=== PATIENT | female | born 1985 | race African-American/Black ===

== ENCOUNTER 2017-05-07 18:04 | Emergency (ER) | payer MEDICAID, OTHER ==
[~2017-05-07] VITALS: Ht 165.1 cm; Wt 76.2 kg
[~2017-05-07 18:04] MED LIST: CEPHALEXIN500 MG ORAL; DIFLUCAN100 MG ORAL; DIFLUCAN150 MG PO; FLAGYL500 MG ORAL; FLAGYL500 MG PO; METROGEL-VAGINA70 G1 VAGIN; METRONIDAZOLE500 MG ORAL; NKM; ZOFRAN8 MG ORAL
--- NOTE | 2017-05-07 18:50 | Emergency Room Report ---
History of Present Illness General Chief Complaint: Female Urogenital Problems Source: Patient Present Illness HPI Patient presents with 2 children Patient herself complains of some burning with urination She was told by her boyfriend that he had cheated on her and that she should probably be tested for STDs Denies any abdominal pain denies any fevers or chills denies any vomiting or diarrhea denies any abdominal pain Denies any pelvic pain Allergies: Coded Allergies: No Known Allergies (Unverified , 01/28/12) Patient History Past Medical History: see triage record Pertinent Family History: none Last Menstrual Period: 04/25/2017 Reviewed Nursing Documentation: PMH: Agreed, PSxH: Agreed Nursing Documentation-PMH Past Medical History: No Stated History Review of Systems All Other Systems: negative except mentioned in HPI Physical Exam Vital Signs Date Time Temp Pulse Resp B/P (MAP) Pulse Ox O2 Delivery O2 Flow Rate FiO2 05/07/17 18:44 97.7 84 16 107/72 96 Room Air 97.7 Sp02 EP Interpretation: reviewed, normal General Appearance: well appearing, no apparent distress Head: normocephalic, atraumatic Eyes: bilateral eye PERRL, bilateral eye EOMI ENT: hearing grossly normal, normal pharynx, TMs + canals normal, uvula midline Neck: full range of motion, supple, no meningismus, no bony tend Respiratory: lungs clear, normal breath sounds, no rhonchi, no respiratory distress, no retraction, no accessory muscle use Cardiovascular #1: normal peripheral pulses, regular rate, rhythm, no edema, no gallop, no JVD, no murmur Gastrointestinal: normal bowel sounds, non tender, soft, no mass, no organomegaly, non-distended, no guarding, no hernia, no pulsatile mass, no rebound Genitourinary: no CVA tenderness Musculoskeletal: normal inspection Neurologic: oriented x3, responsive, c2 tactical analysis technician III-XII nml as tested, motor strength/ tone normal, sensory intact Psychiatric: mood/affect normal Skin: normal color, no rash, warm/dry, palpation normal Lymphatic: normal inspection, no adenopathy Medical Decision Making Diagnostic Impression: Primary Impression: UTI Additional Impression: Urethritis ER Course With the patient's history and examination, multiple differentials considered, including but not limited to , ectopic , ovarian torsion, gastritis, cholecystitis, pancreatitis, appendicitis Patient's urine sample is negative for there is some evidence of bacteria Given the patient's complaints she was empirically treated for possible STD She understands that further testing has not been done here in the ER given the lack of appropriate follow-up however patient requires close outpatient STD clinic follow-up Labs Test 05/07/17 18:54 Urine Color Yellow Urine Appearance Cloudy Urine pH 6 (4.5-8.0) Urine Specific [place] 1.020 (1.005-1.035) Urine Protein 1+ (NEGATIVE) Urine Glucose (UA) Negative (NEGATIVE) Urine Ketones Negative (NEGATIVE) Urine Occult Blood 5+ (NEGATIVE) Urine Nitrite Negative (NEGATIVE) Urine Bilirubin Negative (NEGATIVE) Urine Urobilinogen 1 MG/DL (0.0-1.0) Urine Leukocyte Esterase 2+ (NEGATIVE) Urine RBC 5-10 /HPF (0 - 2) Urine WBC 10-15 /HPF (0 - 2) Urine Squamous Epithelial Cells Many /LPF (NONE/OCC) Urine Amorphous Sediment Moderate /LPF (NONE) Urine Bacteria Many /HPF (NONE) Last Vital Signs Date Time Temp Pulse Resp B/P (MAP) Pulse Ox O2 Delivery O2 Flow Rate FiO2 05/07/17 18:44 97.7 84 16 107/72 96 Room Air 97.7 Status: improved Disposition: HOME, SELF-CARE Condition: Improved Scripts Phenazopyridine Hcl* (PYRIDIUM*) 100 Mg Tablet 100 MG ORAL THREE TIMES A DAY, #12 TAB Prov: Sandra Larson DO 05/07/17 Trimethoprim/Sulfamethoxazole 160/800* (BACTRIM DS TABLET*) 1 Each Tablet 1 TAB ORAL Q12H, #14 TAB 0 Refills Prov: Sandra Larson DO 05/07/17 Additional Instructions: Patient is provided with the discharge instructions notified to follow up with primary doctor in the next 2-3 days otherwise return to the er with any worsening symptoms. Please note that this report is being documented using [employer] technology. This can lead to erroneous entry secondary to incorrect interpretation by the dictating instrument. Sandra Larson DO May 07, 2017 18:50
[2017-05-07] MEDS ORDERED: Azithromycin 250mg tab ORAL ONE (19:00)
[2017-05-07 19:03] LABS: APPEARANCE,URINE CLOUDY; BILIRUBIN, URINE NEGATIVE (NEGATIVE); GLUCOSE, URINE (UA) NEGATIVE (NEGATIVE); KETONES,URINE NEGATIVE (NEGATIVE); LEUKOCYTE ESTERASE ,URINE 2+ (NEGATIVE); NITRITE,URINE NEGATIVE (NEGATIVE); PH,URINE 6 (4.5-8.0); PROTEIN,URINE 1+ (NEGATIVE); UROBILINOGEN,URINE 1 MG/DL (0.0-1.0)
[2017-05-07 19:07] LABS: COLOR,URINE YELLOW
[2017-05-07] MEDS ORDERED: BACTRIM DS TAB1 EAC1 ORAL (19:08)
[2017-05-07] MEDS ORDERED: PHENAZOPYRIDIN100 MG ORAL (19:08)
[2017-05-07 19:20] VITALS: BP 107/72
[2017-05-07] MEDS ORDERED: Lidocaine 1% MPF 10mg/ml 5ml ONE (19:22)
[2017-05-07 19:35] VITALS: BP 107/72
== END 2017-05-07 19:35 | disposition home or self-care (01) ==
LOC: EMR 18:38
DX: N39.0 Urinary tract infection, site not specified (principal); N34.2 Other urethritis; Z20.2 Contact with and (suspected) exposure to infections with a predominantly sexual mode of transmission
CPT/HCPCS: 81003; 87086; 96372; 99284; J0696; Q0144

== ENCOUNTER 2017-05-25 19:04 | Emergency (ER) | payer MEDICAID ==
[~2017-05-25 19:04] MED LIST changes: +BACTRIM DS TAB1 EAC1 ORAL; +PHENAZOPYRIDIN100 MG ORAL
--- NOTE | 2017-05-25 19:45 | Emergency Room Report ---
History of Present Illness General Chief Complaint: To Be Triaged Present Illness Allergies: Coded Allergies: No Known Allergies (Unverified , 01/28/12) Medical Decision Making Diagnostic Impression: Primary Impression: left without being seen ER Course Patient left prior to being seen Status: other Disposition: LEFT W/OUT BEING SEEN Condition: Unknown Referrals: [facility],REFERRING (PCP) Sandra Larson DO May 25, 2017 19:45
== END 2017-05-25 19:35 | disposition home or self-care (01) ==
LOC: EMR 19:35
DX: R10.30 Lower abdominal pain, unspecified (principal); Z53.21 Procedure and treatment not carried out due to patient leaving prior to being seen by health care provider

== ENCOUNTER 2017-06-08 09:50 | Emergency (ER) | payer MEDICAID ==
[~2017-06-08] VITALS: Ht 165.1 cm; Wt 72.6 kg
[2017-06-08 10:15] VITALS: BP 109/73
[2017-06-08 10:34] LABS: APPEARANCE,URINE CLEAR; BILIRUBIN, URINE NEGATIVE (NEGATIVE); GLUCOSE, URINE (UA) NEGATIVE (NEGATIVE); KETONES,URINE NEGATIVE (NEGATIVE); LEUKOCYTE ESTERASE ,URINE 1+ (NEGATIVE); NITRITE,URINE NEGATIVE (NEGATIVE); PH,URINE 6 (4.5-8.0); PROTEIN,URINE NEGATIVE (NEGATIVE); UROBILINOGEN,URINE NORMAL MG/DL (0.0-1.0)
[2017-06-08 10:41] LABS: COLOR,URINE YELLOW
[2017-06-08] MEDS ORDERED: BACTRIM DS TAB1 EAC1 ORAL (11:20)
[2017-06-08] MEDS ORDERED: METRONIDAZOLE500 MG ORAL (11:20)
[2017-06-08 11:30] VITALS: BP_SYST 109; BP_SYST 112; BP_DIAS 70; BP_DIAS 73
--- NOTE | 2017-06-08 14:48 | Emergency Room Report ---
History of Present Illness General Chief Complaint: Female Urogenital Problems Source: Patient Present Illness HPI Patient presents to the emergency department today complaining of vaginal discomfort. Patient has a history of vaginal discharge. Patient has taken Flagyl in the past. Patient states that she also had dysuria. She states that she has dysuria for last couple of days and now has clear foul odor vaginal discharge. She thinks that she might have vaginitis and the UTI. She denies any fever or chest pain shortness of breath. Denies any flank pain. No other complaints are noted. Symptoms noted to be severe. Allergies: Coded Allergies: No Known Allergies (Unverified , 01/28/12) Patient History Past Medical History: none Past Surgical History: none Pertinent Family History: none Social History: Denies: smoking, alcohol use, drug use Last Menstrual Period: 05/31/17 Now: No Reviewed Nursing Documentation: PMH: Agreed; PSxH: Agreed Nursing Documentation-PMH Past Medical History: No Stated History Review of Systems All Other Systems: negative except mentioned in HPI Physical Exam Vital Signs Date Time Temp Pulse Resp B/P (MAP) Pulse Ox O2 Delivery O2 Flow Rate FiO2 06/08/17 10:06 98.2 86 18 109/73 100 Room Air 98.2 Sp02 EP Interpretation: reviewed, normal General Appearance: normal inspection, well appearing, no apparent distress, alert Head: atraumatic Eyes: bilateral eye normal inspection ENT: normal ENT inspection, hearing grossly normal, normal voice Neck: normal inspection, full range of motion, supple, no bony tend Respiratory: normal inspection, lungs clear, normal breath sounds, no respiratory distress, no retraction, no wheezing Cardiovascular #1: regular rate, rhythm, no edema Gastrointestinal: normal inspection, normal bowel sounds, non tender, soft, no guarding, no hernia Genitourinary: no CVA tenderness Musculoskeletal: normal inspection, back normal, normal range of motion Neurologic: normal inspection, alert, responsive, speech normal Psychiatric: normal inspection, judgement/insight normal, mood/affect normal Skin: normal inspection, normal color, no rash Medical Decision Making Diagnostic Impression: Primary Impression: UTI Additional Impression: Bacterial vaginosis ER Course Patient presents to the emergency department today complaining of vaginal discharge. Differential considerations include vaginitis, Ramez, UTI, STD. Patient's exam is consistent with vaginitis. Patient's urine is positive for UTI. I felt the patient would benefit from antibiotics. Patient was given a prescription for Bactrim and Flagyl.Patient is advised to follow up with primary doctor in 2-3 days and return the emergency room for any worsening symptoms and as needed. Labs Test 06/08/17 10:27 Urine Color Yellow Urine Appearance Clear Urine pH 6 (4.5-8.0) Urine Specific [place] 1.020 (1.005-1.035) Urine Protein Negative (NEGATIVE) Urine Glucose (UA) Negative (NEGATIVE) Urine Ketones Negative (NEGATIVE) Urine Occult Blood Negative (NEGATIVE) Urine Nitrite Negative (NEGATIVE) Urine Bilirubin Negative (NEGATIVE) Urine Urobilinogen Normal MG/DL (0.0-1.0) Urine Leukocyte Esterase 1+ (NEGATIVE) Urine RBC 0-2 /HPF (0 - 2) Urine WBC 2-4 /HPF (0 - 2) Urine Squamous Epithelial Cells Few /LPF (NONE/OCC) Urine Bacteria Few /HPF (NONE) Urine Mucus Moderate /LPF (NONE/OCC) Urine HCG, Qualitative Negative (NEGATIVE) Last Vital Signs Date Time Temp Pulse Resp B/P (MAP) Pulse Ox O2 Delivery O2 Flow Rate FiO2 06/08/17 11:30 98.7 80 18 112/70 100 Room Air 98.7 Disposition: HOME, SELF-CARE Condition: Stable Scripts Metronidazole* (FLAGYL*) 500 Mg Tablet 500 MG ORAL BID for 10 Days, TAB Prov: DIOR CORTES M.D. 06/08/17 Trimethoprim/Sulfamethoxazole 160/800* (BACTRIM DS TABLET*) 1 Each Tablet 1 TAB ORAL Q12H, #14 TAB 0 Refills Prov: DIOR CORTES M.D. 06/08/17 Referrals: NOT CHOSEN NANCY/,REFERRING Patient Instructions: Urinary Tract Infection, Vaginitis DIOR CORTES M.D. Jun 08, 2017 14:48
== END 2017-06-08 11:30 | disposition home or self-care (01) ==
LOC: EMR 10:42
DX: N39.0 Urinary tract infection, site not specified (principal); N76.0 Acute vaginitis; B96.89 Other specified bacterial agents as the cause of diseases classified elsewhere
CPT/HCPCS: 81003; 81025; 99284

== ENCOUNTER 2017-08-08 23:10 | Emergency (ER) | payer MEDICAID ==
[~2017-08-08] VITALS: Ht 165.1 cm; Wt 68.0 kg
[2017-08-09] MEDS ORDERED: Cephalexin 500mg cap ORAL ONE (00:30)
[2017-08-09] MEDS ORDERED: CEPHALEXIN500 MG ORAL (00:38)
[2017-08-09] MEDS ORDERED: PHENAZOPYRIDIN200 MG ORAL (00:38)
--- NOTE | 2017-08-09 00:38 | Emergency Room Report ---
History of Present Illness General Chief Complaint: Female Urogenital Problems Source: Patient Present Illness HPI This is a 32-year-old female with a history of UTI in the past but she presents with chief complaint of dysuria, urgency, frequency for the last 5 days. Lower back pain. No nausea no vomiting. Similar to previous UTI. Denies any bleeding. Pain is 7 out of 10. Allergies: Coded Allergies: No Known Allergies (Unverified , 08/09/17) Patient History Past Medical History: see triage record, old chart reviewed Past Surgical History: none Pertinent Family History: none Social History: Denies: smoking Last Menstrual Period: 07/30/17 Now: No Immunizations: other Reviewed Nursing Documentation: PMH: Agreed; PSxH: Agreed Nursing Documentation-PMH Past Medical History: No Stated History Review of Systems Eye: Denies: eye pain, blurred vision ENT: Denies: ear pain, nose congestion, throat swelling Respiratory: Denies: cough, shortness of breath Cardiovascular: Denies: chest pain, palpitations Gastrointestinal: Denies: abdominal pain, diarrhea, nausea, vomiting Genitourinary: Reports: dysuria, frequency, urgency Musculoskeletal: Denies: back pain, joint pain Skin: Denies: rash Neurological: Denies: headache, numbness Endocrine: Denies: increased thirst, increased urine Hematologic/Lymphatic: Denies: easy bruising All Other Systems: negative except mentioned in HPI Physical Exam Vital Signs Date Time Temp Pulse Resp B/P (MAP) Pulse Ox O2 Delivery O2 Flow Rate FiO2 08/09/17 00:06 97.9 70 16 115/79 96 Room Air 97.9 vitals normal Sp02 EP Interpretation: reviewed, normal General Appearance: well appearing, no apparent distress, alert Head: normocephalic, atraumatic Eyes: bilateral eye PERRL, bilateral eye EOMI ENT: hearing grossly normal, normal pharynx Neck: full range of motion, supple, no meningismus Respiratory: chest non-tender, lungs clear, normal breath sounds Cardiovascular #1: regular rate, rhythm, no murmur Gastrointestinal: normal bowel sounds, non tender, no mass, no organomegaly, no bruit, non-distended Musculoskeletal: back normal, gait/station normal, normal range of motion Psychiatric: mood/affect normal Skin: warm/dry Medical Decision Making Diagnostic Impression: Primary Impression: UTI ER Course Patient presents with symptom of UTI. No evidence of sepsis or pyelonephritis. We'll discharge home. Last Vital Signs Date Time Temp Pulse Resp B/P (MAP) Pulse Ox O2 Delivery O2 Flow Rate FiO2 08/09/17 00:06 97.9 70 16 115/79 96 Room Air 97.9 Status: improved Disposition: HOME, SELF-CARE Condition: Stable Scripts Phenazopyridine Hcl* (PYRIDIUM*) 200 Mg Tablet 200 MG ORAL THREE TIMES A DAY, #6 TAB 0 Refills Prov: MILLA BARRERA M.D. 08/09/17 Cephalexin* (KEFLEX*) 500 Mg Capsule 500 MG ORAL TID, #21 CAP Prov: MILLA BARRERA M.D. 08/09/17 Patient Instructions: Urinary Tract Infection Additional Instructions: Follow-up with your doctor in 2-3 days of not better. Return if symptom worsen. MILLA BRARERA M.D. Aug 09, 2017 00:38
[2017-08-09 00:40] VITALS: BP 115/79
== END 2017-08-09 00:46 | disposition home or self-care (01) ==
LOC: EMR 08-09 00:22
DX: N39.0 Urinary tract infection, site not specified (principal)
CPT/HCPCS: 87086; 87181; 99284

== ENCOUNTER 2017-08-11 16:19 | Emergency (ER) | payer MEDICAID ==
[~2017-08-11] VITALS: Ht 165.1 cm; Wt 68.0 kg
[~2017-08-11 16:19] MED LIST changes: +PHENAZOPYRIDIN200 MG ORAL
[2017-08-11] MEDS ORDERED: Norco 5mg/325mg tab ORAL ONE (16:45)
--- NOTE | 2017-08-11 17:15 | Emergency Room Report ---
History of Present Illness General Chief Complaint: Upper Extremity Injury Source: Patient Present Illness HPI 32 YO Female presents to the ED c/o 11/30 in severity pain, tenderness, swelling , bruising and open wound to the left index finger x 1 day. s/p crushed finger accidentally in the door. Denies numbness tingling or loss of sensation or gross motor movements of the extremities, incontinence of bowel or bladder. Denies CP, Palpitations, LOC, AMS , dizziness, Changes in Vision, weakness or a sudden severe headache. Allergies: Coded Allergies: No Known Allergies (Unverified , 08/09/17) Patient History Past Medical History: see triage record Past Surgical History: none Pertinent Family History: none Last Menstrual Period: 07/30/17 Now: No : 5 Para: 5 Nursing Documentation-[facility] Past Medical History: No Stated History Review of Systems All Other Systems: negative except mentioned in HPI Physical Exam Vital Signs Date Time Temp Pulse Resp B/P (MAP) Pulse Ox O2 Delivery O2 Flow Rate FiO2 08/11/17 16:24 98.1 92 16 111/75 97 Room Air 98.1 Sp02 EP Interpretation: reviewed, normal General Appearance: alert, GCS 15, non-toxic, mild distress Head: normocephalic, atraumatic ENT: hearing grossly normal, normal voice Neck: full range of motion Respiratory: lungs clear, normal breath sounds, speaking full sentences Cardiovascular #1: regular rate, rhythm, normal capillary refill Musculoskeletal: back normal, gait/station normal, normal range of motion, other - bruising, tenderness, swelling to the left index finger. 0.5cm laceration, tender - Left index finger Neurologic: alert, oriented x3, responsive, motor strength/tone normal, sensory intact, normal gait, speech normal, grossly normal Psychiatric: judgement/insight normal Skin: no rash, warm/dry, well hydrated, other - 0.5cm laceration dorsum of the left index finger, bruising noted. Medical Decision Making PA Attestation Dr. leo is my supervising Physician whom patient management has been discussed with. Diagnostic Impression: Primary Impression: Finger laceration Qualified Codes: S61.211A - Laceration without foreign body of left index finger without damage to nail, initial encounter Additional Impressions: Crush injury of hand Qualified Codes: S67.22XA - Crushing injury of left hand, initial encounter Contusion of finger, left Qualified Codes: S60.022A - Contusion of left index finger without damage to nail, initial encounter ER Course Pt. presents to the ED c/o left index finger pain and swelling s/p slamming finger in car door. 11/30 pain. pt. is UTD with tetanus. The patient is right had dominant. Ddx considered but are not limited to Fracture, dislocation, contusion, Sprain/ Strain/Spasm, laceration just to name a few. Vital signs: are WNL, pt. is afebrile H&PE are most consistent with musculoskeletal injury will perform imaging to r/ o fractures/dislocations. ORDERS: - X-ray Left hand - negative for fx, Dislocation, or significant soft tissue injury, per preliminary read in ED, and signed by KYRA Ward, my supervising physician has reviewed, and agrees with my interpretation. ED INTERVENTIONS: - Tylenol PO - wound cleaning, and explored for fb. no fb was found. - Finger Splint applied to the left index finger by outside plant technician. Pt. remains neurovascularly intact. -d/w pt. that her laceration is for the most part superficial and will heal with out need for sutures, offered derma-wright, pt. declined. DISCHARGE: At this time pt. is stable for d/c to home. Will provide printed patient care instructions, and any necessary prescriptions. Care plan and follow up instructions have been discussed with the patient prior to discharge. Other X-Ray Diagnostic Results Other X-Ray Diagnostic Results : X-Ray ordered: Left index finger # of Views/Limited Vs Complete: 3 View Indication: Pain PA Xray: Interpretation reviewed, by supervising MD, and agrees with findings. Interpretation: no dislocation, no soft tissue swelling, no fractures Impression: No acute disease Electronically Signed by: Abby Ward PA-C Last Vital Signs Date Time Temp Pulse Resp B/P (MAP) Pulse Ox O2 Delivery O2 Flow Rate FiO2 08/11/17 16:24 98.1 92 16 111/75 97 Room Air 98.1 Disposition: HOME, SELF-CARE Condition: Stable Scripts Bacitracin/Polymyxin B Sulfate (BACITRACIN-POLYMYXIN OINTMENT) 28.35 Gm Oint...g. 1 APPLIC TP BID, #28.3 GM Prov: Abby Ward 08/11/17 Cephalexin* (KEFLEX*) 500 Mg Capsule 500 MG ORAL EVERY 12 HOURS for 7 Days, #14 CAP 0 Refills Prov: Abby Ward 08/11/17 Acetaminophen* (TYLENOL EXTRA STRENGTH*) 500 Mg Tablet 500 MG ORAL Q6H, #20 TAB 0 Refills Prov: Abby Ward 08/11/17 Referrals: NON PHYSICIAN (PCP) Departure Forms: Return to Work Return to Work Date: Aug 15, 2017 Work Restrictions: No Heavy Lifting Other Restrictions: keep hands clean & Dry, Light duty x 1 week. Return to Full Activity: Aug 22, 2017 Patient Instructions: Nonsutured Laceration Care Additional Instructions: Take medications as directed. Follow up with a Primary Care Provider in 3-5 days, even if your symptoms have resolved. --Please review list of primary care clinics, if you do not already have a primary care provider Return sooner to ED if new symptoms occur, or current symptoms become worse. - Please note that this Emergency Department Report was dictated using [employer] showman technology software, occasionally this can lead to erroneous entry secondary to interpretation by the dictation equipment. Abby Ward Aug 11, 2017 17:15
[2017-08-11] MEDS ORDERED: TYLENOL EXTRA500 MG ORAL (17:37)
[2017-08-11] MEDS ORDERED: CEPHALEXIN500 MG ORAL (17:38)
[2017-08-11] MEDS ORDERED: BACITRACIN-P28.35 GM TP (17:38)
[2017-08-11 17:50] VITALS: BP 109/72
--- NOTE | 2017-08-12 09:33 | Diagnostic Imaging Report ---
Indication: Pain Technique: 3 views of the left index finger Comparison: none Findings: No acute fractures. No dislocations. The joint spaces are preserved. No radiopaque foreign body. Impression: Negative
== END 2017-08-11 17:49 | disposition home or self-care (01) ==
LOC: EMR 17:01
DX: S67.191A Crushing injury of left index finger, initial encounter (principal); S61.211A Laceration without foreign body of left index finger without damage to nail, initial encounter; W23.0XXA Caught, crushed, jammed, or pinched between moving objects, initial encounter; Y92.810 Car as the place of occurrence of the external cause
CPT/HCPCS: 29130; 73140; 99282; Z7502

== ENCOUNTER 2017-08-20 10:22 | Emergency (ER) | payer MEDICAID ==
[~2017-08-20] VITALS: Ht 165.1 cm; Wt 72.1 kg
[~2017-08-20 10:22] MED LIST changes: +BACITRACIN-P28.35 GM TP; +TYLENOL EXTRA500 MG ORAL
[2017-08-20 10:41] VITALS: BP 113/70
[2017-08-20] MEDS ORDERED: Azithromycin 250mg tab ORAL ONE (11:00)
[2017-08-20] MEDS ORDERED: Lidocaine 1% MPF 10mg/ml 5ml INJ ONE (11:00)
[2017-08-20] MEDS ORDERED: Dexamethasone 4mg/ml vial IM ONE (11:00)
[2017-08-20] MEDS ORDERED: AMOXICILLIN500 MG ORAL (11:17)
[2017-08-20] MEDS ORDERED: FLUCONAZOLE150 MG ORAL (11:17)
[2017-08-20] MEDS ORDERED: TYLENOL EXTRA500 MG ORAL (11:17)
[2017-08-20 11:21] VITALS: BP 113/70
--- NOTE | 2017-08-20 13:52 | Emergency Room Report ---
History of Present Illness General Chief Complaint: General Complaint Source: Patient Present Illness HPI 32-year-old female presents ED complaining of sore throat. Started 2 days ago. Pain is throbbing, 6 out of 10, nonradiating. Notes difficulty eating and swallowing. Denies fevers or chills. Denies cough or earache. Also complaining of vaginal discharge. States she has been sexually active. Also states she is currently taking Keflex for a finger infection. It is almost completing the prescription. No other aggravating relieving factors. Denies any other associated symptoms Allergies: Coded Allergies: No Known Allergies (Unverified , 08/09/17) Patient History Past Medical History: none Past Surgical History: none Pertinent Family History: none Social History: Denies: smoking, alcohol use, drug use Now: No Immunizations: UTD Reviewed Nursing Documentation: PMH: Agreed; PSxH: Agreed Nursing Documentation-PMH Past Medical History: No Stated History Review of Systems All Other Systems: negative except mentioned in HPI Physical Exam Vital Signs Date Time Temp Pulse Resp B/P (MAP) Pulse Ox O2 Delivery O2 Flow Rate FiO2 08/20/17 10:33 98.0 81 16 113/70 96 Room Air 98.1 Sp02 EP Interpretation: reviewed, normal General Appearance: no apparent distress, alert, GCS 15, non-toxic Head: normocephalic, atraumatic Eyes: bilateral eye normal inspection, bilateral eye PERRL ENT: hearing grossly normal, no angioedema, normal voice, TMs + canals normal, pharyngeal erythema, tonsillar exudate Neck: full range of motion, supple/symm/no masses Respiratory: chest non-tender, lungs clear, normal breath sounds, speaking full sentences Cardiovascular #1: regular rate, rhythm, no edema Cardiovascular #2: 2+ carotid (R), 2+ carotid (L), 2+ radial (R), 2+ radial (L) , 2+ dorsalis pedis (R), 2+ dorsalis pedis (L) Gastrointestinal: normal bowel sounds, non tender, soft, non-distended, no guarding, no rebound Rectal: deferred Genitourinary: normal inspection, no CVA tenderness Musculoskeletal: back normal, gait/station normal, normal range of motion, non- tender Neurologic: alert, oriented x3, responsive, motor strength/tone normal, sensory intact, speech normal Psychiatric: judgement/insight normal, memory normal, mood/affect normal, no suicidal/homicidal ideation Reflexes: 3+ bicep (R), 3+ bicep (L), 3+ tricep (R), 3+ tricep (L), 3+ knee (R) , 3+ knee (L) Skin: normal color, no rash, warm/dry, well hydrated Lymphatic: no adenopathy Medical Decision Making Diagnostic Impression: Primary Impression: Vaginal discharge Additional Impression: Pharyngitis Qualified Codes: J02.9 - Acute pharyngitis, unspecified ER Course Hospital Course 32-year-old female presents to ED complaining of sore throat, also vaginal discharge Differential diagnoses include: URI, pharyngitis, otitis media Clinical course Patient placed on stretcher. After initial history, physical exam reveals a female in no acute distress. Bilateral TM unremarkable. There is pharyngeal erythema w/ tonsillar exudates. No lymphadenopathy. Clinical findings consistent with pharyngitis. Patient notes the vaginal discharge which is white. Notes unprotected sexual activity. Possible GC/Chlamydia. Also taking Keflex for finger infection. Possible yeast infection. Patient brought her children and she declines pelvic exam We will treat empirically for presumed STI. Given Rocephin/azithromycin here. We'll discharge on Diflucan for possible yeast infection Diagnosis - pharyngitis, vaginal discharge Stable and discharged home with prescriptions for diflucan, amoxicillin. Instructed to followup with PMD. return to ED if symptoms recur or worsen Last Vital Signs Date Time Temp Pulse Resp B/P (MAP) Pulse Ox O2 Delivery O2 Flow Rate FiO2 08/20/17 11:21 98.1 74 16 113/70 98 Room Air 98.1 Status: improved Disposition: HOME, SELF-CARE Condition: Stable Scripts Fluconazole (FLUCONAZOLE) 150 Mg Tablet 150 MG ORAL DAILY, #3 TAB Prov: Dick Barboza MD 08/20/17 Acetaminophen* (TYLENOL EXTRA STRENGTH*) 500 Mg Tablet 500 MG ORAL Q8H PRN for Prn Headache/Temp > 101, #30 TAB 0 Refills Prov: Dick Barboza MD 08/20/17 Amoxicillin* (AMOXIL*) 500 Mg Capsule 500 MG ORAL THREE TIMES A DAY, #21 CAP Prov: Dick Barboza MD 08/20/17 Patient Instructions: Cervicitis, [id number], Pharyngitis, [id number] Dick Barboza MD Aug 20, 2017 13:52
== END 2017-08-20 11:24 | disposition home or self-care (01) ==
LOC: EMR 10:44
DX: J02.9 Acute pharyngitis, unspecified (principal); N89.8 Other specified noninflammatory disorders of vagina
CPT/HCPCS: 96372; 99284; J0696; J1100; Q0144

== ENCOUNTER 2018-10-15 19:03 | Emergency (ER) | payer MEDICAID, OTHER ==
[~2018-10-15] VITALS: Ht 165.1 cm; Wt 72.6 kg
[~2018-10-15 19:03] MED LIST changes: +AMOXICILLIN500 MG ORAL; +FLUCONAZOLE150 MG ORAL
[2018-10-15 19:10] VITALS: BP 101/70
--- NOTE | 2018-10-15 19:10 | NUR ---
ED Nurse Note: pt walked in c/o sorethroat and white stuff on throat x 3 days, burning sensation when urinates
--- NOTE | 2018-10-15 19:39 | Emergency Room Report ---
History of Present Illness General Chief Complaint: Sore Throat Source: Patient Present Illness HPI 33-year-old female with no significant past medical history here complaining of 1 week of 10 out of 10 sore throat and headache. Denies fever and chills, cough , abdominal pain, nausea vomiting. Repeat complains of 3 days of urinary frequency and dysuria. Denies hematuria, vaginal discharge, pruritus. Has not taken medication for symptom relief. Her 12-year-old daughter presents here today with similar symptoms. Allergies: Coded Allergies: No Known Allergies (Unverified , 08/09/17) Patient History Past Medical History: see triage record Past Surgical History: unable to obtain Pertinent Family History: none Now: No Immunizations: UTD Reviewed Nursing Documentation: PMH: Agreed; PSxH: Agreed Nursing Documentation-PMH Past Medical History: No Stated History Review of Systems All Other Systems: negative except mentioned in HPI Physical Exam Vital Signs Date Time Temp Pulse Resp B/P (MAP) Pulse Ox O2 Delivery O2 Flow Rate FiO2 10/15/18 19:10 97.5 79 18 101/70 98 Room Air Sp02 EP Interpretation: reviewed, normal General Appearance: no apparent distress, alert, GCS 15, non-toxic Head: normocephalic, atraumatic Eyes: bilateral eye normal inspection, bilateral eye PERRL ENT: hearing grossly normal, normal voice, TMs + canals normal, uvula midline, tonsillar swelling, tonsillar exudate Neck: other - anterior cervical lymphadenopathy Respiratory: chest non-tender, lungs clear, normal breath sounds, no rhonchi, no wheezing, speaking full sentences Cardiovascular #1: regular rate, rhythm, no edema, no murmur, normal capillary refill Gastrointestinal: normal bowel sounds, non tender, soft, non-distended, no guarding, no rebound Genitourinary: normal inspection, no CVA tenderness Musculoskeletal: back normal, gait/station normal, normal range of motion, non- tender Neurologic: alert, oriented x3, responsive, motor strength/tone normal, sensory intact, speech normal Psychiatric: judgement/insight normal, memory normal, mood/affect normal, no suicidal/homicidal ideation Skin: no rash Lymphatic: adenopathy - anterior cervical Medical Decision Making PA Attestation All diagnoses and treatment plans were reviewed and discussed with my supervising physician Dr. Hicks Diagnostic Impression: Primary Impression: Tonsillitis with exudate Additional Impression: UTI ER Course 33-year-old female with no significant past medical history here complaining of 1 week of 10 out of 10 sore throat and headache. Denies fever and chills, cough , abdominal pain, nausea vomiting. Repeat complains of 3 days of urinary frequency and dysuria. Denies hematuria, vaginal discharge, pruritus. Has not taken medication for symptom relief. Her 12-year-old daughter presents here today with similar symptoms. Ddx considered but are not limited to: strep pharyngitis, URI, tonsillitis, peritonsillar abscess, influneza, UTI, pyelonephritis, dysuria Vital signs: are WNL, pt. is afebrile H&PE are most consistent with: Tonsillitis with exudate, UTI symptoms ORDERS: UA, urine test, Keflex, Pyridium ED INTERVENTIONS: None required at this time. DISCHARGE: At this time pt. is stable for d/c to home. Will provide printed patient care instructions, and any necessary prescriptions. Care plan and follow up instructions have been discussed with the patient prior to discharge. Take medication as directed follow-up with your primary care provider due to previous history of recurrent urinary tract infection patient to be treated symptomatically. If worsening symptoms return to the emergency room. Last Vital Signs Date Time Temp Pulse Resp B/P (MAP) Pulse Ox O2 Delivery O2 Flow Rate FiO2 10/15/18 19:10 97.5 78 18 101/70 (80) 98 Room Air Disposition: HOME, SELF-CARE Condition: Stable Scripts Phenazopyridine Hcl* (PYRIDIUM*) 200 Mg Tablet 200 MG ORAL THREE TIMES A DAY for 2 Days, #6 TAB 0 Refills Prov: Dequan Ware 10/15/18 Cephalexin* (KEFLEX*) 500 Mg Capsule 500 MG ORAL EVERY 6 HOURS for 7 Days, #28 CAP Prov: Dequan Ware 10/15/18 Referrals: [facility] (PCP) Patient Instructions: Tonsillitis, Urinary Tract Infection, [id number] Additional Instructions: Take medication as directed follow-up with your primary care provider worsening symptoms return to the emergency room Dequan Ware Oct 15, 2018 19:39
[2018-10-15] MEDS ORDERED: CEPHALEXIN500 MG ORAL (19:40)
[2018-10-15] MEDS ORDERED: PHENAZOPYRIDIN200 MG ORAL (19:40)
[2018-10-15 19:46] VITALS: BP 110/69
--- NOTE | 2018-10-15 19:46 | NUR ---
ER DISCHARGE NOTE: Patient is cleared to be discharged per ERMD, pt is aox4, on room air, with stable vital signs. pt was given dc and prescription instructions, pt was able to verbalize understanding, pt id band removed. pt is able to ambulate with steady gait. pt took all belongings.
[2018-10-15 19:55] LABS: APPEARANCE,URINE CLEAR; BILIRUBIN, URINE NEGATIVE (NEGATIVE); GLUCOSE, URINE (UA) NEGATIVE (NEGATIVE); KETONES,URINE 1+ (NEGATIVE); LEUKOCYTE ESTERASE ,URINE NEGATIVE (NEGATIVE); NITRITE,URINE NEGATIVE (NEGATIVE); PH,URINE 6 (4.5-8.0); PROTEIN,URINE NEGATIVE (NEGATIVE); UROBILINOGEN,URINE NORMAL MG/DL (0.0-1.0)
[2018-10-15 20:00] LABS: COLOR,URINE YELLOW
== END 2018-10-15 19:46 | disposition home or self-care (01) ==
LOC: EMR 19:35
DX: J03.90 Acute tonsillitis, unspecified (principal); N39.0 Urinary tract infection, site not specified
CPT/HCPCS: 81001; 81025; 99282

== ENCOUNTER 2018-12-13 16:53 | Emergency (ER) | payer OTHER ==
[~2018-12-13] VITALS: Ht 165.1 cm; Wt 77.1 kg
[2018-12-13 16:57] VITALS: BP 116/77
--- NOTE | 2018-12-13 17:07 | NUR ---
ED Nurse Note: PT WALKED IN DUE TO VAGINAL PAIN WITH WHITE DISCHARGE AND FOUL ODOR X 3 DAYS. STATES SHE HAD UNPROTECTED SEX 3 DAYS AGO. NO FEVER. AAO X4, AMBULATORY.
[2018-12-13 17:38] LABS: APPEARANCE,URINE SLIGHTLY CLOUDY; BILIRUBIN, URINE NEGATIVE (NEGATIVE); COLOR,URINE BROWN; GLUCOSE, URINE (UA) NEGATIVE (NEGATIVE); KETONES,URINE 1+ (NEGATIVE); LEUKOCYTE ESTERASE ,URINE 1+ (NEGATIVE); NITRITE,URINE NEGATIVE (NEGATIVE); PH,URINE 6 (4.5-8.0); PROTEIN,URINE 2+ (NEGATIVE); UROBILINOGEN,URINE NORMAL MG/DL (0.0-1.0)
--- NOTE | 2018-12-13 18:08 | Emergency Room Report ---
History of Present Illness General Chief Complaint: Female Urogenital Problems Source: Patient Present Illness HPI 33 YO female presents to the ED C/O malodorous vaginal discharge x3 days in addition to dysuria. Patient reports having unprotected intercourse and having acute onset of her symptoms after. Patient denies fevers or chills, abdominal pain or tenderness, nausea or vomiting. Patient denies suspicion of . Patient reports right colors discharge. Patient denies recent antibiotic use. She reports some burning sensation that she rates as 7 out of 10 severity. Denies external genital lesions, rashes or swollen tender lymph nodes. Allergies: Coded Allergies: No Known Allergies (Unverified , 08/09/17) Patient History Past Medical History: see triage record Past Surgical History: none Pertinent Family History: none Last Menstrual Period: 11/25/18 Now: No Reviewed Nursing Documentation: PMH: Agreed; PSxH: Agreed Nursing Documentation-PMH Past Medical History: No Stated History Review of Systems All Other Systems: negative except mentioned in HPI Physical Exam Vital Signs Date Time Temp Pulse Resp B/P (MAP) Pulse Ox O2 Delivery O2 Flow Rate FiO2 12/13/18 16:57 98.2 73 16 116/77 100 Room Air Sp02 EP Interpretation: reviewed, normal General Appearance: no apparent distress, alert, GCS 15, non-toxic Head: normocephalic, atraumatic Eyes: bilateral eye normal inspection, bilateral eye PERRL, bilateral eye conjunctivae pale ENT: hearing grossly normal, normal voice Neck: full range of motion Respiratory: lungs clear, normal breath sounds, speaking full sentences Cardiovascular #1: regular rate, rhythm Gastrointestinal: normal bowel sounds, non tender, soft, non-distended, no guarding Genitourinary: normal inspection, no CVA tenderness, adnexa normal, other - malodorus white/milky vaginal d/c, no CMT. , no external lesions Musculoskeletal: back normal, gait/station normal, normal range of motion, non- tender Neurologic: alert, oriented x3, responsive, motor strength/tone normal, sensory intact, speech normal, grossly normal Psychiatric: judgement/insight normal Skin: no rash Lymphatic: no adenopathy Medical Decision Making PA Attestation Dr. Barboza is my supervising Physician whom patient management has been discussed with. Diagnostic Impression: Primary Impression: Bacterial vaginosis Additional Impression: UTI ER Course 33 YO female presents to the ED C/O malodorous vaginal discharge x3 days in addition to dysuria. Patient reports having unprotected intercourse and having acute onset of her symptoms after. Patient denies fevers or chills, abdominal pain or tenderness, nausea or vomiting. Patient denies suspicion of . Patient reports right colors discharge. Patient denies recent antibiotic use. She reports some burning sensation that she rates as 7 out of 10 severity. Denies external genital lesions, rashes or swollen tender lymph nodes. Ddx considered but are not limited to UTi , Pyelo, STI, Stone, Cystitis Vital signs: are WNL, pt. is afebrile H&PE are most consistent with UTI ORDERS: - UA labs are attached -- Positive for UTI -Urine Hcg: Negative - Wet [place]: clue cells ED INTERVENTIONS: - 250IU Rocephin IM -1g Azithromycin DISCHARGE: At this time pt. is stable for d/c to home. Will provide printed patient care instructions, and any necessary prescriptions. Care plan and follow up instructions have been discussed with the patient prior to discharge. Labs Test 12/13/18 17:30 Urine Color Brown Urine Appearance Slightly cloudy Urine pH 6 (4.5-8.0) Urine Specific [place] 1.025 (1.005-1.035) Urine Protein 2+ (NEGATIVE) Urine Glucose (UA) Negative (NEGATIVE) Urine Ketones 1+ (NEGATIVE) Urine Blood Negative (NEGATIVE) Urine Nitrite Negative (NEGATIVE) Urine Bilirubin Negative (NEGATIVE) Urine Urobilinogen Normal MG/DL (0.0-1.0) Urine Leukocyte Esterase 1+ (NEGATIVE) Urine RBC 0-2 /HPF (0 - 2) Urine WBC 2-4 /HPF (0 - 2) Urine Squamous Epithelial Cells Moderate /LPF (NONE/OCC) Urine Bacteria Moderate /HPF (NONE) Urine Mucus Many /LPF (NONE/OCC) Urine HCG, Qualitative Negative (NEGATIVE) Last Vital Signs Date Time Temp Pulse Resp B/P (MAP) Pulse Ox O2 Delivery O2 Flow Rate FiO2 12/13/18 16:57 98.2 73 16 116/77 (90) 100 Room Air Disposition: HOME, SELF-CARE Condition: Stable Scripts No Active Prescriptions or Reported Meds Patient Instructions: Urinary Tract Infection Additional Instructions: Take medications as directed. Follow up with a [facility] within 3 days, even if your symptoms have resolved. * * Return sooner to ED if new symptoms occur, or current symptoms become worse. - Please note that this Emergency Department Report was dictated using [employer] technology software, occasionally this can lead to erroneous entry secondary to interpretation by the dictation equipment. Abby Ward Dec 13, 2018 18:08
[2018-12-13] MEDS ORDERED: METRONIDAZOLE500 MG ORAL (18:53)
[2018-12-13] MEDS ORDERED: NITROFURANTOIN100 M2 ORAL (18:53)
[2018-12-13] MEDS ORDERED: Lidocaine 1% MPF 10mg/ml 5ml INJ ONE (19:00)
[2018-12-13] MEDS ORDERED: Azithromycin 250mg tab ORAL ONE (19:00)
[2018-12-13 19:03] VITALS: BP 122/78
--- NOTE | 2018-12-13 19:03 | NUR ---
ER DISCHARGE NOTE: Patient is cleared to be discharged per PA, pt is aox4, on room air, with stable vital signs. pt was given dc and prescription instructions, pt was able to verbalize understanding, pt id band removed. pt is able to ambulate with steady gait. pt took all belongings.
== END 2018-12-13 19:03 | disposition home or self-care (01) ==
LOC: EMR 17:40
DX: N39.0 Urinary tract infection, site not specified (principal); N76.0 Acute vaginitis
CPT/HCPCS: 81003; 81025; 87086; 87210; 96372; 96374; J0696; Q0144; Z7502; 99284